=== PATIENT | female | born 1965 | race African-American/Black ===

== ENCOUNTER 2017-12-19 07:55 | Emergency (ER) | payer MEDICAID ==
[~2017-12-19] VITALS: Ht 160 cm; Wt 104.0 kg
[~2017-12-19 07:55] MED LIST: ATOR20TA PO
[2017-12-19] MEDS ORDERED: KETOROLAC 30MG/ML VIAL IV STA (09:18)
[2017-12-19] MEDS ORDERED: SODIUM CHLORIDE 0.9% 1,000 ML IV ONE ×2 (09:18→11:26)
[2017-12-19] MEDS ORDERED: ONDANSETRON HCL 4MG/2ML VIAL IV STA ×2 (09:18→11:26)
[2017-12-19 09:50] LABS: BASOPHILS % 0.2 % (0.0-2.0); EOSINOPHILS % 0.5 % (0.0-5.0); HEMATOCRIT. 41.9 % (36.0-48.0); HEMOGLOBIN. 13.9 g/dL (12.0-16.0); LYMPHOCYTES % 16.9 % (20.0-50.0); MEAN CORPUSCULAR VOLUME 87.5 fL (81.0-99.0); MEAN PLATELET VOLUME 9.5 fl (7.4-10.4); MONOCYTES % 5.5 % (2.0-8.0); NEUTROPHILS % 76.9 % (40.0-76.0); PLATELET 194 x1000/uL (130-400); RED BLOOD CELL COUNT 4.79 mill/uL (4.2-5.4); RED CELL DISTRIBUTION WIDTH 13.9 % (11.6-14.6)
[2017-12-19 09:58] LABS: CHLORIDE 103 mEq/L (98-107)
[2017-12-19 10:03] LABS: TROPONIN I < 0.02 ng/mL (0.00-0.04)
[2017-12-19 10:39] LABS: CLARITY URINE CLEAR (CLEAR); COLOR URINE YELLOW (YELLOW); KETONES URINE NEGATIVE (NEGATIVE); LEUKOCYTE ESTERASE URINE TRACE (NEGATIVE); NITRITE URINE NEGATIVE (NEGATIVE); OCCULT BLOOD URINE NEGATIVE (NEGATIVE); PH URINE 6.5 (4.5-8.0); PROTEIN URINE NEGATIVE (NEGATIVE); UROBILINOGEN URINE 0.2 E.U./dL (0.2-1.0)
[2017-12-19] MEDS ORDERED: ACETAMINOPHEN 325MG TABLET PO ONE (11:30)
[2017-12-19 15:20] VITALS: BP 136/59
== END 2017-12-19 15:29 | disposition home or self-care (01) ==
LOC: ER 07:55
DX: J84.9 Interstitial pulmonary disease, unspecified (principal); E11.9 Type 2 diabetes mellitus without complications; I10 Essential (primary) hypertension; Z98.51 Tubal ligation status
CPT/HCPCS: 36415; 71045; 80053; 81003; 83690; 83880; 84484; 85025; 87804; 93005; 96361; 96374; 96375; 99285; J1885; J2405; J7030; Z7610